=== PATIENT | male | born 1985 | race Caucasian/White ===

== ENCOUNTER 2019-09-04 11:00 | Outpatient (RCR) | payer OTHER, SELFPAY ==
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
--- NOTE | 2019-09-25 10:16 | PCOTNOTE ---
Subjective: Patient arrives to OT this date with no new complaints. He reports that he continues to perform exercises and feels that it is slowly getting better. Patient reports that it is still difficult to actively move his L middle finger. He also states that he is returning to light duty next Saturday. Objective: Sensation/Appearance: Patient reports tingling in the tips of the L middle and ring fingers and prickly-needles on the dorsal and volar aspect of the middle finger. Bruising is not longer observed. PROM: Patient continues to tolerate PROM with less pain. L thumb, index, ring and small fingers are all within normal limits, PROM for middle finger: MCP flexion: 90, PIP flexion: 90, DIP flexion: 40, PROM for extension of middle finger is within normal limits. AROM: Patient continues to perform AROM with increased range and less pain. L thumb, index, and small fingers are all within normal limits. Ring finger: MCP flexion/extension: 90/0, PIP flexion/extension: 60/0, DIP flexion/extension: 30/0. Middle finger: MCP flexion/extension: 90/0, PIP flexion/extension: 60/-25, DIP flexion/extension: 30/0 Pain: Patient reports 0/10 pain at rest and 7/10 with AROM and PROM. Edema: 7 cm circumference of L middle PIP Assessment: Patient has been seen for 10 OT sessions and has made good progress towards goals. He continues to slowly progress with PROM and AROM of the L hand, specifically middle and ring fingers. Tingling/numbness continues to be reported in the middle finger as well as pain with movement. Patient has been issued stretches and exercises to perform at home and is encouraged to continue. Continue skilled OT services to facilitate AROM of the L middle finger, specifically PIP/DIP flexion and extension. Plan: Patient to continue skilled OT services to facilitate ROM and decrease pain and edema for 2 more visits.
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
--- NOTE | 2019-10-09 09:37 | PCOTNOTE ---
Subjective: Patient arrives to OT this date with no new complaints. He reports that he continues to perform exercises and has been working on grasping objects; however is having a difficult time maintaining grasp. Patient reports that he has an MRI scheduled for Saturday. Objective: Pain: Patient reports 0/10 pain at rest and 5/10 pain in the middle finger with movement. PROM: Patient continues to tolerate PROM with less pain. PROM for middle finger: PIP flexion/extension: 100/0, DIP flexion: 60/0, ring finger: PIP flexion/extension: 110/0, DIP flexion/extension: 60/0 AROM: Patient continues to perform AROM with increased range and less pain. Ring finger: PIP flexion/extension: 75/0, DIP flexion/extension: 35/0. Middle finger: PIP flexion/extension: 75/-5, DIP flexion/extension: 35/0 Assessment: Patient tolerates OT with good participation and continues to progress with PROM and AROM. Less pain with movement is also reported. Patient tolerates light strengthening this date. Plan: Patient to continue skilled OT services to facilitate ROM, strength and decrease pain.
--- NOTE | 2019-10-19 08:53 | PCOTNOTE ---
Subjective: Patient arrives to OT this date with no new complaints. He reports that he continues to perform exercises and has been working on grasping objects. He reports that his left hand will frequently get stiff and tired after using it. Objective: Pain: Patient reports 0/10 pain at rest and 2-3/10 pain in the middle finger with AROM. Sensation: Patient also reports sensitivity at the distal middle finger. He has been performing deep pressure touch. PROM: Patient continues to tolerate PROM with less pain. PROM for middle finger: PIP flexion/extension: 102/0, DIP flexion: 60/0, AROM: Patient continues to perform AROM with increased range and less pain. Middle finger: PIP flexion/extension: 85/0, DIP flexion/extension: 55/0 Assessment: Patient tolerates OT with good participation and continues to progress with PROM and AROM. Less pain with movement is also reported. Patient has progressed and is performing strengthening and coordination activities within therapy sessions. Plan: Patient to continue skilled OT services to facilitate ROM, strength, coordination, and decrease pain.
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
== END 2019-10-26 18:37 | disposition home or self-care (01) ==
LOC: CHSOT 11:00
PROVIDERS: PCP Nurse Practitioner Family; Visit Provider Nurse Practitioner Family
DX: M79.642 Pain in left hand (principal); S60.00XA Contusion of unspecified finger without damage to nail, initial encounter
CPT/HCPCS: 97035; 97110; 97140; 97165

== ENCOUNTER 2020-03-15 20:59 | Emergency (ER) | payer SELFPAY ==
--- NOTE | ~2020-03-15 | XR_ITS ---
EXAMINATION: XR chest 1V portable INDICATION: Substernal chest pain TECHNIQUE: Portable AP chest at 2124 hours COMPARISON: 01/06/2015 FINDINGS: The lungs are free of acute opacities. There is no pleural effusion or pneumothorax. The ca rdiomediastinal silhouette is normal. The visualized bones and soft tissues are unremarkable. IMPRESSION: 1. No acute cardiopulmonary abnormality. Reviewed, dictated and finalized at location A.
[2020-03-15 21:00] VITALS: BP 148/82; PULSE 78; RESP 20; TEMP 37.1; O2SAT 98
--- NOTE | 2020-03-15 21:05 | ECG_ITS ---
Measurements Intervals [place] Rate: 72 P: 27 NE: 142 QRS: 80 QRSD: 88 T: 59 QT: 361 QTc: 397 Interpretive Statements SINUS RHYTHM NORMAL ECG Electronically Signed On 03-16-2020 7:40:53 CDT by Ho Dubose D.O.
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
[2020-03-15] MEDS: ASPIRIN 81 MG CHEWABLE TABLET 324 MG PO (21:12)
[2020-03-15] MEDS: NITROGLYCERIN SL 0.4 MG TABLET SUBLINGUAL (21:15)
--- NOTE | 2020-03-15 21:15 | PC.NURSE ---
3 NITRO TABS GIVEN Q 5 MINUTES - PAIN FROM 7/10 TO 0/10
[2020-03-15 21:22] LABS: Basophils Absolute Auto 0.04 K/mm3 (0.00-0.10); Basophils Percent Auto 0.4 % (0.0-1.0); Eosinophils Absolute Auto 0.06 K/mm3 (0.02-0.50); Eosinophils Percent Auto 0.6 % (1.0-6.0); Hematocrit 47.5 % (40.0-54.0); Hemoglobin 16.3 g/dL (14.0-18.0); Immature Granulocyte Absolute 0.05 K/mm3 (0.00-0.00); Immature Granulocyte Percent A 0.5 % (0.0-0.0); Lymphocytes Absolute Auto 2.16 K/mm3 (1.10-4.50); Lymphocytes Percent Auto 20.1 % (18.0-42.0); Mean Corpuscular HGB Conc 34.3 g/dL (32.0-36.0); Mean Corpuscular Hemoglobin 29.3 pg (27.0-31.0); Mean Corpuscular Volume 85.4 fL (78.0-102.0); Mean Platelet Volume 8.7 fl (8.7-11.0); Monocytes Absolute Auto 0.91 K/mm3 (0.10-0.90); Monocytes Percent Auto 8.5 % (2.0-11.0); Neutrophils Absolute Auto 7.5 K/mm3 (1.7-7.2); Neutrophils Percent Auto 69.9 % (50.0-70.0); Platelet Count Result 275 K/mm3 (150-420); Red Blood Count 5.56 M/mm3 (4.70-6.10); Red Cell Distribution Width 12.8 % (11.6-14.4); White Blood Count 10.7 K/mm3 (4.8-10.8)
[2020-03-15 21:29] VITALS: BP 139/79; PULSE 69; O2SAT 99
[2020-03-15 21:36] LABS: D Dimer 0.19 mg/L (0.19-0.50); Partial Thromboplastin Time 26.3 SEC (22.3-31.6); Prothrombin Time 10.3 Seconds (9.64-11.0)
[2020-03-15 21:39] LABS: Alanine Aminotransferase 26 U/L (16-63); Albumin Level 4.1 g/dL (3.4-5.0); Alkaline Phosphatase 66 U/L (46-116); Anion Gap 13.7 mmol/L (7-16); Aspartate Amino Transferase 23 U/L (15-37); Bilirubin,Total 0.3 mg/dL (0.00-1.00); Blood Urea Nitrogen 13 mg/dL (7-18); Calcium 8.9 mg/dL (8.5-10.1); Carbon Dioxide 26 mmol/L (21-32); Chloride 103 mmol/L (98-108); Estimated Glomerular Filt Rate > 60; Glucose 95 mg/dL (70-99); Osmolality Calculated 288 mOsm/kg (285-295); Potassium 3.7 mmol/L (3.5-5.1); Sodium 139 mmol/L (136-145); Total Protein 7.1 g/dL (6.4-8.2); Troponin I < 0.02 ng/mL (0.00-0.056)
[2020-03-15] MEDS: KETOROLAC 30 MG/ML VIAL (*BKC) IV PUSH (21:54)
[2020-03-15 22:01] LABS: Amphetamine Screen Urine Negative (Negative); Barbiturate Screen Urine Negative (Negative); Benzodiazepines Screen Urine Negative (Negative); Cannabinoid Screen Urine Positive (Negative); Cocaine Screen Urine Negative (Negative); Methadone Screen Urine Negative (Negative); Opiate Screen Urine Negative (Negative); Phencyclidine Screen Urine Negative (Negative)
--- NOTE | 2020-03-15 23:42 | PC.NURSE ---
pt resting per cot. states still has left arm tingling. awaiting repeat lab drawn at midnight. erp notified of same.
[2020-03-16 00:27] LABS: Troponin I < 0.02 ng/mL (0.00-0.056)
[2020-03-16 00:45] VITALS: BP 119/65; PULSE 53; RESP 20; TEMP 37.1; O2SAT 97
== END 2020-03-16 01:02 | disposition home or self-care (01) ==
PROVIDERS: Emergency Provider Emergency Medicine
DX: R07.89 Other chest pain (principal)
CPT/HCPCS: 36415; 71045; 80053; 80307; 84484; 85025; 85380; 85610; 85730; 93005; 96374; 99284; A9270; J1885

== ENCOUNTER 2020-04-26 07:36 | Outpatient (CLI) | payer OTHER, SELFPAY ==
--- NOTE | ~2020-04-26 | MR_ITS ---
EXAMINATION: MR shoulder RT wo con DATE: 04/26/2020 08:36 INDICATION: Right shoulder pain TECHNIQUE: Magnetic resonance imaging (MRI) of the right shoulder was performed without intravenous c ontrast. Sequences included axial PD-weighted FS FSE, coronal oblique PD-weighted FS FSE, coronal obl ique T2-weighted FS FSE, sagittal PD-weighted FS FSE, and sagittal T1-weighted SE. COMPARISON: None. FINDINGS: Coracoacromial arch: The acromion undersurface is curved in morphology (type II). The coracoacromial ligament is normal. M inimal acromioclavicular osteoarthritis. Rotator cuff: The supraspinatus, infraspinatus and teres minor tendons are normal. The subscapularis tendon is norm al. Normal rotator cuff muscle bulk and signal. Biceps tendon, glenoid labrum and glenohumeral cartilage: Long head of the biceps tendon is normal. There is a tear at the 11:00-12:30 position of the superior glenoid labrum. Glenohumeral cartilage is normal. Fluid: Physiologic amount of fluid in the glenohumeral joint and biceps tendon sheath. No loose osteochondra l bodies. No abnormal fluid signal in the subacromial/subdeltoid bursa to suggest bursitis. Bones: Mild marrow edema at the lateral head of the clavicle which appears disproportionate to the minimal o steoarthritis and with mild thickening and increased signal of the acromioclavicular joint capsule wh ich could be seen with distal clavicular osteolysis. Correlate with prior radiographs. Subtle erosive change with loss of the sharply defined cortical margin of the articular surface of the right clavic le. No fracture or pathologic marrow replacing process. IMPRESSION: 1. SLAP tear at the superior glenoid labrum. 2. Marrow edema at the lateral head of the left clavicle which is disproportionate to the minimal ost eoarthritis with suggestion of subtle erosive change of the articular cortex which could be consisten t with distal clavicular osteolysis which can be sequela of trauma or repetitive microtrauma such as with weight lifting. Differential would also include hyperparathyroidism, rheumatoid arthritis or scl eroderma. Reviewed, dictated and finalized at location B. IMPRESSION: 1. SLAP tear at the superior glenoid labrum. 2. Marrow edema at the lateral head of the left clavicle which is disproportion ate to the minimal osteoarthritis with suggestion of subtle erosive change of t he articular cortex which could be consistent with distal clavicular osteolysis which can be sequela of trauma or repetitive microtrauma such as with weight l ifting. Differential would also include hyperparathyroidism, rheumatoid arthrit is or scleroderma.
== END 2020-04-26 07:37 | disposition home or self-care (01) ==
LOC: CHSIMG 07:40
PROVIDERS: PCP Nurse Practitioner Family; Visit Provider Nurse Practitioner Family
DX: M25.511 Pain in right shoulder (principal)
CPT/HCPCS: 73221